=== PATIENT | male | born 1965 | race African-American/Black ===

== ENCOUNTER 2019-03-01 10:12 | Inpatient (IN) | payer OTHER ==
[2019-03-01 11:09] VITALS: BMI 26.8
--- NOTE | 2019-03-01 12:24 | HP ---
CIWA Score Nausea/Vomitin Muscle Tremors: 2 Anxiety: 2 Agitation: 2 Paroxysmal Sweats: 1-Minimal Palms Moist Orientation: 0-Oriented Tacttile Disturbances: 1-Very Mild Itch/Numbness Auditory Disturbances: 1-Very Mild Visual Disturbances: 0-None Headache: 2-Mild CIWA-Ar Total Score: 13 - Admission Criteria OASAS Guidelines: Admission for Medically Managed Detox: Requires at least one of the followin. CIWA greater than 12 2. Seizures within the past 24 hours 3. Delirium tremens within the past 24 hours 4. Hallucinations within the past 24 hours 5. Acute intervention needed for co occurring medical disorder 6. Acute intervention needed for co occurring psychiatric disorder 7. Severe withdrawal that cannot be handled at a lower level of care (continued vomiting, continued diarrhea, abnormal vital signs) requiring intravenous medication and/or fluids 8. Admission ROS S - HPI Chief Complaint: i need help to sto drinking alcohol,cocaine and marijuana Allergies/Adverse Reactions: Allergies Allergy/AdvReac Type Severity Reaction Status Date / Time lamotrigine [From Lamictal] Allergy Verified 03/01/19 12:18 olanzapine [From Zyprexa] Allergy Verified 03/01/19 12:18 History of Present Illness: this 53 years old male with alcohol and cocaine and marijuana dependence, seeking detox,withdrawal symptom, had previous admissions before last [facility] 1998 syncope alcohol related bipolar disorder on haldol 75 mgs im twice a month last 2 wweks ago longest sobriety 20 years plan for rehab after detox Exam Limitations: No Limitations - Ebola screening Have you traveled outside of the country in the last 21 days: No Have you had contact with anyone from an Ebola affected area: No Do you have a fever: No - Review of Systems Constitutional: Loss of Appetite, Night Sweats, Changes in sleep, Weakness EENT: reports: Tearing, Nose Congestion Respiratory: reports: No Symptoms reported Cardiac: reports: No Symptoms Reported GI: reports: Nausea, Poor Appetite, Abdominal cramping : reports: No Symptoms Reported Musculoskeletal: reports: Back Pain, Muscle Pain Integumentary: reports: Dryness Neuro: reports: Headache, Tremors Endocrine: reports: No Symptoms Reported Hematology: reports: No Symptoms Reported Psychiatric: reports: No Sypmtoms Reported, Judgement Intact, Mood/Affect Appropiate, Orientated x3, other Other Systems: Reviewed and Negative Patient History - Patient Medical History Hx Anemia: No Hx Asthma: No Hx Chronic Obstructive Pulmonary Disease (COPD): No Hx Cancer: No Hx Cardiac Disorders: No Hx Congestive Heart Failure: No Hx Hypertension: No Hx Hypercholesterolemia: No Hx Pacemaker: No HX Cerebrovascular Accident: No Hx Seizures: No Hx Diabetes: No Hx Gastrointestinal Disorders: No Hx Liver Disease: No Hx Genitourinary Disorders: No Hx Sexually Transmitted Disorders: No Hx Renal Disease (ESRD): No Hx Thyroid Disease: No Hx Human Immunodeficiency Virus (HIV): No (last 2916 negative ) Hx Hepatitis C: No Hx Depression: No Hx Suicide Attempt: No Hx Bipolar Disorder: Yes (on haldol injection) Hx Schizophrenia: No Other Medical History: no sucidal,no homicidal - Patient Surgical History Past Surgical History: Yes Other Surgical History: tonsillectomy at age 2 1nd a half year - PPD History Previous Implant?: Yes Documented Results: Negative w/o proof Implanted On Prior [facility] Admission?: No PPD to be Administered?: Yes - Smoking Cessation Smoking history: Never smoked - Substance & Tx. History Hx Alcohol Use: Yes Hx Substance Use: Yes Substance Use Type: Alcohol, Cocaine, Marijuana Hx Substance Use Treatment: Yes (1998 in [facility]) - Substances abused Alcohol Substance route: Oral Frequency: Daily Amount used: 1 pint of vodka Age of first use: 12 Date of last use: 03/01/19 Other Other (specify): Morphine Substance route: Smoking Frequency: 1-2 times per week Amount used: 1 gram Age of first use: 39 Date of last use: 02/24/19 Cocaine Substance route: Smoking Frequency: 1-2 times per week Amount used: 1 gram Age of first use: 17 Date of last use: 02/24/19 Marijuana/Hashish Substance route: Smoking Frequency: 1-2 times per week Amount used: 10$ Age of first use: 12 Date of last use: 02/25/19 Family Disease History - Family Disease History Family History: Denies Admission Physical Exam S - Vital Signs Vital Signs: Vital Signs - 24 hr 03/01/19 11:03 Temperature 97 F L Pulse Rate 80 Respiratory 18 Rate Blood Pressure 143/83 - Physical General Appearance: Yes: Moderate Distress, Tremorous, Irritable, Sweating, Anxious HEENTM: Yes: Normal ENT Inspection, Normocephalic, JASMIN, Pharynx Normal Respiratory: Yes: Lungs Clear, Normal Breath Sounds, No Respiratory Distress Neck: Yes: Within Normal Limits, Supple, Trachea in good position Breast: Yes: Within Normal Limits Cardiology: Yes: Within Normal Limits, Regular Rhythm, Regular Rate, S1, S2 Abdominal: Yes: Within Normal Limits, Normal Bowel Sounds, Non Tender, Flat, Soft Genitourinary: Yes: Within Normal Limits Back: Yes: Muscle Spasm Musculoskeletal: Yes: Back pain, Muscle Pain Extremities: Yes: Tremors Neurological: Yes: elementary tutor II-XII NML intact, Fully Oriented, Alert, Motor Strength 5/5 Integumentary: Yes: Dry Lymphatic: Yes: Within Normal Limits - Diagnostic (1) Alcohol dependence with uncomplicated withdrawal Current Visit: Yes Status: Acute (2) Cocaine dependence Current Visit: Yes Status: Acute (3) Cannabis dependence Current Visit: Yes Status: Acute (4) Syncope Current Visit: Yes Status: Acute (5) Bipolar disorder Current Visit: Yes Status: Acute (6) Dehydration Current Visit: Yes Status: Acute Cleared for Admission [facility] - Detox or Rehab [facility] Level of Care: Medically Managed Detox Regimen/Protocol: Librium Breathalyzer - Breathalyzer Breathalyzer: 0 Urine Drug Screen - Test Device Lot number: [id number] Expiration date: 10/14/20 - Control Is test valid?: Yes - Results Drug screen NEGATIVE: Yes Inpatient Rehab Admission - Rehab Decision to Admit Inpatient rehab admission?: No
[2019-03-01] MEDS ORDERED: MAG HYDROX/AL HYDROX/SIMETH 30 ML UNIT-DOSE CUP PO PRN (12:39)
[2019-03-01] MEDS ORDERED: hydrOXYzine PAMOATE 25 MG CAPSULE (FP) PO PRN (12:39)
[2019-03-01] MEDS ORDERED: IBUPROFEN 400 MG TABLET (FP) PO PRN (12:39)
[2019-03-01] MEDS ORDERED: MENTHOL/PHENOL 1 EACH UD MM PRN (12:39)
[2019-03-01] MEDS ORDERED: MELATONIN 5 MG TABLETS PO PRN (12:39)
[2019-03-01] MEDS ORDERED: BISMUTH SUBSALICYLATE 524 MG/30 ML UD PO PRN (12:39)
[2019-03-01] MEDS ORDERED: chlordiazePOXIDE HCL 25 MG CAPSULE PO PRN (12:39)
[2019-03-01] MEDS ORDERED: MAGNESIUM CITRATE 300 ML BOTTLE PO PRN (12:39)
[2019-03-01] MEDS ORDERED: METHOCARBAMOL 500 MG TABLET PO PRN (12:39)
[2019-03-01] MEDS ORDERED: MAGNESIUM HYDROX 2400MG/30ML ORAL SUSPENSION 30 ML CUP PO PRN (12:39)
[2019-03-01] MEDS ORDERED: ACETAMINOPHEN 325 MG TABLET (FP) PO PRN ×2 (12:39)
[2019-03-01 14:51] LABS: MCH 33.1 pg (25.7-33.7); MCHC 34.2 g/dl (32.0-35.9); MEAN CELL VOLUME 96.8 fl (80-96); MEAN PLT VOLUME 7.9 fl (7.5-11.1); PLATELET COUNT 167 K/MM3 (134-434); RBC 4.24 M/mm3 (4.00-5.60); RDW 14.2 % (11.9-15.9); WHITE BLOOD COUNT 4.8 K/mm3 (4.0-10.0)
[2019-03-01 15:12] LABS: ALBUMIN 3.5 g/dl (3.4-5.0); ALK PHOS 95 U/L (45-117); ANION GAP 4 MMOL/L (8-16); BILIRUBIN,TOTAL 0.4 mg/dL (0.2-1); BLOOD UREA NITROGEN 11 mg/dL (7-18); CALCIUM 8.7 mg/dL (8.5-10.1); CHLORIDE 103 mmol/L (98-107); CO2 30 mmol/L (21-32); GLUCOSE,RANDOM 82 mg/dL (74-106); POTASSIUM 3.9 mmol/L (3.5-5.1); SGOT/AST 39 U/L (15-37); SGPT/ALT 36 U/L (13-61); SODIUM 137 mmol/L (136-145); TOT PROT 7.6 g/dl (6.4-8.2)
[2019-03-01 15:28] LABS: SICKLE CELL SCREEN NEGATIVE (NEGATIVE)
[2019-03-01] MEDS: chlordiazePOXIDE HCL 25 MG CAPSULE PO SCH ×2 (17:27→22:29)
[2019-03-01] MEDS: THIAMINE HCL 100 MG TABLET (FP) PO SCH (22:29)
[2019-03-02 01:01] LABS: URINE APPEARANCE Clear; URINE BILIRUBIN Negative (NEGATIVE); URINE COLOR Yellow; URINE GLUCOSE (UA) Negative (NEGATIVE); URINE KETONE Negative (NEGATIVE); URINE LEUK ESTERASE Negative (NEGATIVE); URINE NITRITE Negative (NEGATIVE); URINE PROTEIN Negative (NEGATIVE); URINE UROBILINOGEN 0.2 mg/dL (0.2-1.0)
[2019-03-02] MEDS: chlordiazePOXIDE HCL 25 MG CAPSULE PO SCH ×4 (05:10→22:19)
[2019-03-02] MEDS: PRENATAL VITAMINS W/ FOLIC ACID TABLET (FP) PO SCH (10:05)
--- NOTE | 2019-03-02 12:57 | CONSULT ---
[facility] Psychiatric Consult - Data Date of interview: 03/02/19 Admission source: [facility] Identifying data: Patient is a 53 year old single male, without children, unemployed, homeless, and is supported by [facility]. This is patient's first admission to detox at [facility]. Patient admitted to for alcohol and cocaine dependence. Substance Abuse History: Smoking Cessation. Smoking history: Never smoked. - Substance & Tx. History. Hx Alcohol Use: Yes. Hx Substance Use: Yes. Substance Use Type: Alcohol, Cocaine, Marijuana. Hx Substance Use Treatment: Yes (1999 in [facility]). - Substances abused. Alcohol. Substance route: Oral. Frequency: Daily. Amount used: 1 pint of vodka. Age of first use : 12. Date of last use: 03/01/19. Other. Other (specify): Morphine. Substance route: Smoking. Frequency: 1-2 times per week. Amount used: 1 gram. Age of first use: 39. Date of last use: 02/24/19. Cocaine. Substance route: Smoking. Frequency: 1-2 times per week. Amount used: 1 gram. Age of first use: 17. Date of last use: 02/24/19. Marijuana/Hashish. Substance route: Smoking. Frequency: 1-2 times per week. Amount used: 10$. Age of first use: 12. Date of last use: 02/25/19 Medical History: Syncope Psychiatric History: Patient's first psychiatric contact was at 16 years of age at an outpatient clinic which resulted in a diagnosis of schizophrenia. Patient' s first psychiatric hospitalization was at 19 years of age at [facility]. As per Adrián, his diagnosis was revised to schizoaffective at 31 years of age. He reports additional psychiatric hospitalizations at [facility] and most recently in 2018 at [facility] in [place] " to get my medications fixed." Patient is followed by the ACT team in [place] and reports being managed on haldol decanoate 75mg every two weeks (recently received decanoate on 02/17/19). States he is due for it tomorrow but is getting discharged on wednesday and will attempt to receive the haldol decanoate after discharge. Patient denies h/o suicide attempt. Patient denies current auditory and visual hallucinations. Patient is coherent, alert and oriented, and does not present with psychotic symptoms. Physical/Sexual Abuse/Trauma History: denies. Mental Status Exam - Mental Status Exam Alert and Oriented to: Time, Place, Person Cognitive Function: Good Patient Appearance: Well Groomed Mood: Euthymic Affect: Appropriate Patient Behavior: Fatigued Speech Pattern: Appropriate Voice Loudness: Normal Thought Process: Goal Oriented Thought Disorder: Not Present Hallucinations: Denies Suicidal Ideation: Denies Homicidal Ideation: Denies Insight/Judgement: Poor Sleep: Fair Appetite: Fair Muscle strength/Tone: Normal Gait/Station: Normal Psychiatric Findings - Problem List ([place] 1, 2,3) (1) Alcohol dependence with uncomplicated withdrawal Current Visit: Yes Status: Acute (2) Cannabis dependence Current Visit: Yes Status: Acute (3) Cocaine dependence Current Visit: Yes Status: Acute (4) Schizoaffective disorder Current Visit: Yes Status: Chronic - Initial Treatment Plan Initial Treatment Plan: Psychoeducation provided. Rehab in progress. Will need to obtain collateral concerning Haldol decanoate injection from [facility] team if patient is admitted to rehab. Patient reports receiving haldol decanoate 75mg on 02/17/19 and is due for it tomorrow. He plans on being discharge on wednesday and seeing the ACT team after discharge next week.
--- NOTE | 2019-03-02 14:28 | PN ---
S CIWA - CIWA Score Nausea/Vomitin-Mild Nausea/No Vomiting Muscle Tremors: 3 Anxiety: 2 Agitation: 3 Paroxysmal Sweats: 1-Minimal Palms Moist Orientation: 2-Disoriented Date<2 days Tacttile Disturbances: 0-None Auditory Disturbances: 0-None Visual Disturbances: 0-None Headache: 0-None Present CIWA-Ar Total Score: 12 BHS Progress Note (SOAP) Subjective: tremor low energy trouble resting restlessness Objective: 03/02/19 14:30 Vital Signs Temperature 96.5 F L 03/02/19 13:39 Pulse Rate 71 03/02/19 13:39 Respiratory Rate 20 03/02/19 13:39 Blood Pressure 91/62 03/02/19 13:39 O2 Sat by Pulse Oximetry (%) Laboratory Last Values WBC 4.8 K/mm3 (4.0-10.0) 03/01/19 12:45 RBC 4.24 M/mm3 (4.00-5.60) 03/01/19 12:45 Hgb 14.0 GM/dL (11.7-16.9) 03/01/19 12:45 Hct 41.0 % (35.4-49) 03/01/19 12:45 MCV 96.8 fl (80-96) H 03/01/19 12:45 MCH 33.1 pg (25.7-33.7) 03/01/19 12:45 MCHC 34.2 g/dl (32.0-35.9) 03/01/19 12:45 RDW 14.2 % (11.9-15.9) 03/01/19 12:45 Plt Count 167 K/MM3 (134-434) 03/01/19 12:45 MPV 7.9 fl (7.5-11.1) 03/01/19 12:45 Sickle Cell Screen Negative (NEGATIVE) 03/01/19 12:45 Sodium 137 mmol/L (136-145) 03/01/19 12:45 Potassium 3.9 mmol/L (3.5-5.1) 03/01/19 12:45 Chloride 103 mmol/L (98-107) 03/01/19 12:45 Carbon Dioxide 30 mmol/L (21-32) 03/01/19 12:45 Anion Gap 4 MMOL/L (8-16) L 03/01/19 12:45 BUN 11 mg/dL (7-18) 03/01/19 12:45 Creatinine 1.0 mg/dL (0.55-1.3) 03/01/19 12:45 Creat Clearance w eGFR 77.58 (>60) 03/01/19 12:45 Random Glucose 82 mg/dL (74-106) 03/01/19 12:45 Calcium 8.7 mg/dL (8.5-10.1) 03/01/19 12:45 Total Bilirubin 0.4 mg/dL (0.2-1) 03/01/19 12:45 AST 39 U/L (15-37) H 03/01/19 12:45 ALT 36 U/L (13-61) 03/01/19 12:45 Alkaline Phosphatase 95 U/L (45-117) 03/01/19 12:45 Total Protein 7.6 g/dl (6.4-8.2) 03/01/19 12:45 Albumin 3.5 g/dl (3.4-5.0) 03/01/19 12:45 Urine Color Yellow 03/01/19 14:18 Urine Appearance Clear 03/01/19 14:18 Urine pH 6.0 (5.0-8.0) 03/01/19 14:18 Ur Specific [place] 1.025 (1.010-1.035) 03/01/19 14:18 Urine Protein Negative (NEGATIVE) 03/01/19 14:18 Urine Glucose (UA) Negative (NEGATIVE) 03/01/19 14:18 Urine Ketones Negative (NEGATIVE) 03/01/19 14:18 Urine Blood 1+ (NEGATIVE) H 03/01/19 14:18 Urine Nitrite Negative (NEGATIVE) 03/01/19 14:18 Urine Bilirubin Negative (NEGATIVE) 03/01/19 14:18 Urine Urobilinogen 0.2 mg/dL (0.2-1.0) 03/01/19 14:18 Ur Leukocyte Esterase Negative (NEGATIVE) 03/01/19 14:18 Urine RBC (Auto) 5-10 /hpf (0-4) 03/01/19 14:18 RPR Titer Nonreactive (NONREACTIVE) 03/01/19 12:45 Hep C Ab Diagnostic <0.1 s/co ratio (0.0-0.9) 03/01/19 12:45 HIV 1&2 Antibody Screen Negative 03/01/19 12:45 HIV P24 Antigen Negative 03/01/19 12:45 lab noted Assessment: 03/02/19 14:32 withdrawal sx Plan: continue detox
[2019-03-02] MEDS: THIAMINE HCL 100 MG TABLET (FP) PO SCH (22:19)
[2019-03-03] MEDS: chlordiazePOXIDE HCL 25 MG CAPSULE PO SCH ×2 (05:42→10:19)
[2019-03-03] MEDS: PRENATAL VITAMINS W/ FOLIC ACID TABLET (FP) PO SCH (10:18)
--- NOTE | 2019-03-03 15:44 | PN ---
[facility] CIWA - CIWA Score Nausea/Vomitin-No Nausea/No Vomiting Muscle Tremors: 2 Anxiety: 3 Agitation: 3 Paroxysmal Sweats: No Perspiration Orientation: 0-Oriented Tacttile Disturbances: 1-Very Mild Itch/Numbness Auditory Disturbances: 2-Mild Harshness/Frighten Visual Disturbances: 0-None Headache: 0-None Present CIWA-Ar Total Score: 11 BHS Progress Note (SOAP) Subjective: Fatigue, Tremors, Anxious, Restless. Objective: PATIENT A & O X 2 (UNCERTAIN ABOUT CURRENT DAY / DATE). PATIENT OBSERVED AMBULATING ON UNIT UNASSISTED. IN NO ACUTE DISTRESS. 03/03/19 15:42 Vital Signs Temperature 98.3 F 03/03/19 14:53 Pulse Rate 76 03/03/19 14:53 Respiratory Rate 18 03/03/19 14:53 Blood Pressure 108/64 03/03/19 14:53 O2 Sat by Pulse Oximetry (%) Laboratory Tests 03/01/19 03/01/19 03/01/19 12:45 12:45 12:45 WBC 4.8 RBC 4.24 Hgb 14.0 Hct 41.0 MCV 96.8 H MCH 33.1 MCHC 34.2 RDW 14.2 Plt Count 167 MPV 7.9 Sickle Cell Screen Negative Sodium 137 Potassium 3.9 Chloride 103 Carbon Dioxide 30 Anion Gap 4 L BUN 11 Creatinine 1.0 Creat Clearance w eGFR 77.58 Random Glucose 82 Calcium 8.7 Total Bilirubin 0.4 AST 39 H ALT 36 Alkaline Phosphatase 95 Total Protein 7.6 Albumin 3.5 Urine Color Urine Appearance Urine pH Ur Specific [place] Urine Protein Urine Glucose (UA) Urine Ketones Urine Blood Urine Nitrite Urine Bilirubin Urine Urobilinogen Ur Leukocyte Esterase Urine RBC (Auto) RPR Titer Nonreactive Hep C Ab Diagnostic HIV 1&2 Antibody Screen HIV P24 Antigen 03/01/19 03/01/19 03/01/19 12:45 12:45 14:18 WBC RBC Hgb Hct MCV MCH MCHC RDW Plt Count MPV Sickle Cell Screen Sodium Potassium Chloride Carbon Dioxide Anion Gap BUN Creatinine Creat Clearance w eGFR Random Glucose Calcium Total Bilirubin AST ALT Alkaline Phosphatase Total Protein Albumin Urine Color Yellow Urine Appearance Clear Urine pH 6.0 Ur Specific [place] 1.025 Urine Protein Negative Urine Glucose (UA) Negative Urine Ketones Negative Urine Blood 1+ H Urine Nitrite Negative Urine Bilirubin Negative Urine Urobilinogen 0.2 Ur Leukocyte Esterase Negative Urine RBC (Auto) 5-10 RPR Titer Hep C Ab Diagnostic <0.1 HIV 1&2 Antibody Screen Negative HIV P24 Antigen Negative LABS NOTED. Assessment: 03/03/19 15:42 WITHDRAWAL SYMPTOMS. Plan: CONTINUE DETOX.
[2019-03-03] MEDS ORDERED: chlordiazePOXIDE HCL 10 MG CAPSULE PO PRN (17:00)
[2019-03-03] MEDS: chlordiazePOXIDE HCL 10 MG CAPSULE PO SCH ×2 (17:32→22:21)
[2019-03-03] MEDS: THIAMINE HCL 100 MG TABLET (FP) PO SCH (22:19)
[2019-03-04] MEDS: chlordiazePOXIDE HCL 10 MG CAPSULE PO SCH ×3 (05:11→17:53)
[2019-03-04] MEDS: PRENATAL VITAMINS W/ FOLIC ACID TABLET (FP) PO SCH (10:45)
--- NOTE | 2019-03-04 15:08 | PN ---
S CIWA - CIWA Score Nausea/Vomitin-No Nausea/No Vomiting Muscle Tremors: 3 Anxiety: 1-Mildly Anxious Agitation: 0-Normal Activity Paroxysmal Sweats: No Perspiration Orientation: 0-Oriented Tacttile Disturbances: 1-Very Mild Itch/Numbness Auditory Disturbances: 0-None Visual Disturbances: 2-Mild Sensitivity Headache: 0-None Present CIWA-Ar Total Score: 7 BHS Progress Note (SOAP) Subjective: Fatigue, Tremors (Mild). Objective: PATIENT A & O X 3, OBSERVED AMBULATING ON UNIT UNASSISTED. IN NO ACUTE DISTRESS. PATIENT REPORTS HISTORY OF LOW BP. 03/04/19 15:06 Vital Signs Temperature 97.1 F L 03/04/19 13:03 Pulse Rate 78 03/04/19 13:03 Respiratory Rate 18 03/04/19 13:03 Blood Pressure 95/55 L 03/04/19 13:03 O2 Sat by Pulse Oximetry (%) Laboratory Tests 03/01/19 03/01/19 03/01/19 12:45 12:45 12:45 WBC 4.8 RBC 4.24 Hgb 14.0 Hct 41.0 MCV 96.8 H MCH 33.1 MCHC 34.2 RDW 14.2 Plt Count 167 MPV 7.9 Sickle Cell Screen Negative Sodium 137 Potassium 3.9 Chloride 103 Carbon Dioxide 30 Anion Gap 4 L BUN 11 Creatinine 1.0 Creat Clearance w eGFR 77.58 Random Glucose 82 Calcium 8.7 Total Bilirubin 0.4 AST 39 H ALT 36 Alkaline Phosphatase 95 Total Protein 7.6 Albumin 3.5 Urine Color Urine Appearance Urine pH Ur Specific [place] Urine Protein Urine Glucose (UA) Urine Ketones Urine Blood Urine Nitrite Urine Bilirubin Urine Urobilinogen Ur Leukocyte Esterase Urine RBC (Auto) RPR Titer Nonreactive Hep C Ab Diagnostic HIV 1&2 Antibody Screen HIV P24 Antigen 03/01/19 03/01/19 03/01/19 12:45 12:45 14:18 WBC RBC Hgb Hct MCV MCH MCHC RDW Plt Count MPV Sickle Cell Screen Sodium Potassium Chloride Carbon Dioxide Anion Gap BUN Creatinine Creat Clearance w eGFR Random Glucose Calcium Total Bilirubin AST ALT Alkaline Phosphatase Total Protein Albumin Urine Color Yellow Urine Appearance Clear Urine pH 6.0 Ur Specific [place] 1.025 Urine Protein Negative Urine Glucose (UA) Negative Urine Ketones Negative Urine Blood 1+ H Urine Nitrite Negative Urine Bilirubin Negative Urine Urobilinogen 0.2 Ur Leukocyte Esterase Negative Urine RBC (Auto) 5-10 RPR Titer Hep C Ab Diagnostic <0.1 HIV 1&2 Antibody Screen Negative HIV P24 Antigen Negative LABS NOTED. 03/04/19 15:07 Assessment: 03/04/19 15:06 WITHDRAWAL SYMPTOMS. Plan: CONTINUE DETOX. PATIENT SCHEDULED FOR D/C TOMORROW.
[2019-03-04] MEDS: THIAMINE HCL 100 MG TABLET (FP) PO SCH (22:25)
[2019-03-05] MEDS: chlordiazePOXIDE HCL 10 MG CAPSULE PO SCH (05:32)
[2019-03-05 06:21] VITALS: BP 99/47; PULSE 60; TEMP 97.7
--- NOTE | 2019-03-05 08:51 | DS ---
[facility] Detox Discharge Summary Admission Date: 03/01/19 Discharge Date: 03/05/19 - History Present History: Alcohol Dependence Additional Comments: 53 years old male admitted on 03/01/19 for alcohol withdrawal stabilization completed detox regimen aftercare [place] residential patient had haldol IM two weeks ago and next dose due soon after return to resident patient is alert no acute distress denies hallucination speech slow but clear and cohesive Pertinent Past History: bring in medication list and lab report to aftercare appointment longest sobriety 22 years had home group self help support meeting daily - Physical Exam Results Vital Signs: Vital Signs Temperature 97.7 F 03/05/19 06:21 Pulse Rate 60 03/05/19 06:21 Respiratory Rate 18 03/05/19 06:21 Blood Pressure 99/47 L 03/05/19 06:21 O2 Sat by Pulse Oximetry (%) Pertinent Admission Physical Exam Findings: alcohol withdrawal sx Laboratory Last Values WBC 4.8 K/mm3 (4.0-10.0) 03/01/19 12:45 RBC 4.24 M/mm3 (4.00-5.60) 03/01/19 12:45 Hgb 14.0 GM/dL (11.7-16.9) 03/01/19 12:45 Hct 41.0 % (35.4-49) 03/01/19 12:45 MCV 96.8 fl (80-96) H 03/01/19 12:45 MCH 33.1 pg (25.7-33.7) 03/01/19 12:45 MCHC 34.2 g/dl (32.0-35.9) 03/01/19 12:45 RDW 14.2 % (11.9-15.9) 03/01/19 12:45 Plt Count 167 K/MM3 (134-434) 03/01/19 12:45 MPV 7.9 fl (7.5-11.1) 03/01/19 12:45 Sickle Cell Screen Negative (NEGATIVE) 03/01/19 12:45 Sodium 137 mmol/L (136-145) 03/01/19 12:45 Potassium 3.9 mmol/L (3.5-5.1) 03/01/19 12:45 Chloride 103 mmol/L (98-107) 03/01/19 12:45 Carbon Dioxide 30 mmol/L (21-32) 03/01/19 12:45 Anion Gap 4 MMOL/L (8-16) L 03/01/19 12:45 BUN 11 mg/dL (7-18) 03/01/19 12:45 Creatinine 1.0 mg/dL (0.55-1.3) 03/01/19 12:45 Creat Clearance w eGFR 77.58 (>60) 03/01/19 12:45 Random Glucose 82 mg/dL (74-106) 03/01/19 12:45 Calcium 8.7 mg/dL (8.5-10.1) 03/01/19 12:45 Total Bilirubin 0.4 mg/dL (0.2-1) 03/01/19 12:45 AST 39 U/L (15-37) H 03/01/19 12:45 ALT 36 U/L (13-61) 03/01/19 12:45 Alkaline Phosphatase 95 U/L (45-117) 03/01/19 12:45 Total Protein 7.6 g/dl (6.4-8.2) 03/01/19 12:45 Albumin 3.5 g/dl (3.4-5.0) 03/01/19 12:45 Urine Color Yellow 03/01/19 14:18 Urine Appearance Clear 03/01/19 14:18 Urine pH 6.0 (5.0-8.0) 03/01/19 14:18 Ur Specific [place] 1.025 (1.010-1.035) 03/01/19 14:18 Urine Protein Negative (NEGATIVE) 03/01/19 14:18 Urine Glucose (UA) Negative (NEGATIVE) 03/01/19 14:18 Urine Ketones Negative (NEGATIVE) 03/01/19 14:18 Urine Blood 1+ (NEGATIVE) H 03/01/19 14:18 Urine Nitrite Negative (NEGATIVE) 03/01/19 14:18 Urine Bilirubin Negative (NEGATIVE) 03/01/19 14:18 Urine Urobilinogen 0.2 mg/dL (0.2-1.0) 03/01/19 14:18 Ur Leukocyte Esterase Negative (NEGATIVE) 03/01/19 14:18 Urine RBC (Auto) 5-10 /hpf (0-4) 03/01/19 14:18 RPR Titer Nonreactive (NONREACTIVE) 03/01/19 12:45 Hep C Ab Diagnostic <0.1 s/co ratio (0.0-0.9) 03/01/19 12:45 HIV 1&2 Antibody Screen Negative 03/01/19 12:45 HIV P24 Antigen Negative 03/01/19 12:45 lab noted - Treatment Hospital Course: Detox Protocol Followed, Detoxed Safely, Responded well, Discharged Condition Good, Rehab Referral Accepted Patient has Accepted a Rehab Referral to: Self help support group - Medication Discharge Medications: Ambulatory Orders Haloperidol Decanoate [Haldol Decanoate 50] 75 mg IM MONTHLY 03/04/19 - Diagnosis (1) Alcohol dependence with uncomplicated withdrawal Current Visit: Yes Status: Acute (2) Schizoaffective disorder Current Visit: Yes Status: Suspected Qualifiers: Schizoaffective disorder type: unspecified Qualified Code(s): F25.9 - Schizoaffective disorder, unspecified - AMA Did Patient Leave Against Medical Advice: No
== END 2019-03-05 09:01 | disposition home or self-care (01) | DRG 774 ==
LOC: YASAS 10:12 → Y3N 13:55
PROVIDERS: ADMIT Surgery; ATTEND Surgery
PROC: HZ2ZZZZ Detoxification Services for Substance Abuse Treatment (ICD-10-PCS; principal; 2019-03-01)
DX: F10.230 Alcohol dependence with withdrawal, uncomplicated (principal); F14.20 Cocaine dependence, uncomplicated; F12.20 Cannabis dependence, uncomplicated; F25.9 Schizoaffective disorder, unspecified; F31.9 Bipolar disorder, unspecified; E86.0 Dehydration
CPT/HCPCS: 36415; 80053; 81003; 85027; 85660; 86593; 86803; 87389